=== PATIENT | female | born 1975 | race Caucasian/White ===

== ENCOUNTER 2020-02-22 06:57 | Emergency (ER) | payer OTHER ==
[~2020-02-22] VITALS: Ht 172.7 cm; Wt 92.5 kg
[2020-02-22 08:40] LABS: BASOPHIL % 0.5 % (0-2); PLATELET COUNT 206 x10^3mcL (130-400); RED CELL DISTRIBUTION WIDTH 13.9 % (11.5-14.5)
[2020-02-22 08:44] LABS: CALCIUM 7.7 mg/dL (8.5-10.1); CARBON DIOXIDE 25.9 mmol/L (21-32); CHLORIDE SERUM 103 mmol/L (98-107); CREATININE SERUM 0.7 mg/dL (0.6-1.0); GFR1 > 60 mL/min; GLUCOSE SERUM 91 mg/dL (74-106); POTASSIUM SERUM 4.2 mmol/L (3.5-5.1); SODIUM SERUM 136 mmol/L (136-145)
[2020-02-22 08:49] LABS: ALKALINE PHOSPHATASE 69 U/L (46-116); ALT/SGPT 15 U/L (14-59); AST/SGOT 15 U/L (15-37); BILIRUBIN TOTAL 0.29 mg/dL (0.20-1.00); HDL CHOLESTEROL 57 mg/dL (40-60); LIPASE 99 IU/L (73-393); TOTAL PROTEIN, SERUM 6.6 g/dL (6.4-8.2)
[2020-02-22 08:50] LABS: ALBUMIN 2.9 g/dL (3.4-5.0); CHOLESTEROL 203 mg/dL (<200); CHOLESTEROL/HDL RATIO 3.6; TRIGLYCERIDES 258 mg/dL (<150)
[2020-02-22 10:14] LABS: microscopic required? NO
[2020-02-22 10:39] LABS: urine erythrocyte NEGATIVE (NEGATIVE)
[2020-02-22 11:00] VITALS: BP 121/75
== END 2020-02-22 12:50 | disposition home or self-care (01) ==
LOC: ED 06:57
PROVIDERS: Specialist
DX: R10.84 Generalized abdominal pain (principal); M54.6 Pain in thoracic spine; K21.9 Gastro-esophageal reflux disease without esophagitis
CPT/HCPCS: J0696; J1885; J2405; J3490; J7030; J7060